=== PATIENT | male | born 1955 | race Two or more races ===

== ENCOUNTER 2022-04-24 19:08 | Emergency (ER) | payer OTHER ==
[~2022-04-24] VITALS: Ht 170.2 cm; Wt 90.7 kg
[2022-04-24 19:44] VITALS: BP 153/63
--- NOTE | 2022-04-24 19:50 | NUR ---
[facility] FOR EVALUATION OF L RING FINGER SWELLING S/P CUT IN BETWEEN THE DOOR YESTERDAY. PATIENT ALERT AND ORIENTED X3. AMBULATORY WITH NON LABORED BREATHING IN BED 13 AWAITING MD ABREU.
[2022-04-24] MEDS ORDERED: BACI/NEOM/POLY B OINT PKT 1 UDPKT PACKET TP ONE (20:30)
[2022-04-24] MEDS ORDERED: LIDOCAINE /MPF 1% VIAL 5 ML VIAL TP ONE (20:30)
[2022-04-24] MEDS ORDERED: AMOX-430 PO (21:37)
--- NOTE | 2022-04-24 21:43 | NUR ---
[facility] ETA:10MIN
--- NOTE | 2022-04-24 21:47 | NUR ---
REPORT GIVEN TO ABIEL AT THE FACILITY
--- NOTE | 2022-04-24 22:02 | NUR ---
[facility] AT BED SIDE TO PROJECT MGR THE PT
--- NOTE | 2022-04-24 22:30 | NUR ---
PT WAS TRANSFERRED BACK TO THE FACILITY IN STABLE CONDITION. D/C PAPERS GIVEN AND BELONGINGS INCLUDING DENTURES WERE PICKED UP.
== END 2022-04-24 23:39 ==
LOC: ER 19:10
DX: L03.012 Cellulitis of left finger (principal); E11.22 Type 2 diabetes mellitus with diabetic chronic kidney disease; I13.0 Hypertensive heart and chronic kidney disease with heart failure and stage 1 through stage 4 chronic kidney disease, or unspecified chronic kidney disease; N18.9 Chronic kidney disease, unspecified; I50.9 Heart failure, unspecified; Z79.899 Other long term (current) drug therapy